=== PATIENT | male | born 1955 | race Caucasian/White ===

== ENCOUNTER → 2016-12-31 | Outpatient (CLI) | payer BC ==
[~2016-12-31] MED LIST: CIPR500T3 PO; COLA100C PO; LOSA25TA8 PO; MELO15TA4 PO; PERC5TAB6 PO; TYLE325T5 PO
== END ==
LOC: M WUC 13:45
PROVIDERS: ATTEND Urology
DX: Z85.46 Personal history of malignant neoplasm of prostate (principal)

== ENCOUNTER → 2017-02-10 | Outpatient (CLI) | payer BC ==
[~2017-02-10] MED LIST changes: -COLA100C PO; +COLA100C3 PO
[2017-02-10 12:56] LABS: ALBUMIN 3.7 GM/DL (3.2-5.2); ALBUMIN/GLOBULIN RATIO 1.28 (1.00-1.93); ALKALINE PHOSPHATASE 56 U/L (45-117); ALT/SGPT 18 U/L (12-78); ANION GAP 5 MEQ/L (8-16); AST/SGOT 12 U/L (15-37); BILIRUBIN,TOTAL 0.5 MG/DL (0.2-1.0); BLOOD UREA NITROGEN 22 MG/DL (7-18); CALCIUM LEVEL 8.9 MG/DL (8.8-10.2); CARBON DIOXIDE LEVEL 28 MEQ/L (21-32); CHLORIDE LEVEL 109 MEQ/L (98-107); CHOLESTEROL LEVEL 220 MG/DL (<200); CREATININE FOR GFR 1.23 MG/DL (0.70-1.30); GLOMERULAR FILTRATION RATE > 60.0 (>49); GLUCOSE, FASTING 96 MG/DL (80-110); POTASSIUM SERUM 4.7 MEQ/L (3.5-5.1); SODIUM LEVEL 142 MEQ/L (136-145); TOTAL PROTEIN 6.6 GM/DL (6.4-8.2); TRIGLYCERIDES LEVEL 143 MG/DL (<150)
== END ==
LOC: M WUC 08:58
PROVIDERS: ATTEND Emergency Medicine
DX: I10 Essential (primary) hypertension (principal); E78.2 Mixed hyperlipidemia

== ENCOUNTER → 2017-05-10 | Outpatient (CLI) | payer OTHER, BC ==
[~2017-05-10] MED LIST changes: -COLA100C3 PO; +COLA100C5 PO; +PERC5TAB12 PO; -PERC5TAB6 PO
--- NOTE | 2017-05-11 15:23 | ECGEPIP ---
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 No prior ECG available for comparison at the time of interpretation. Electronically Signed On 05-11-2017 15:22:53 EDT by Mack Cedeño
== END ==
LOC: M EKG 14:27
PROVIDERS: ATTEND Orthopaedic Surgery
DX: Z01.810 Encounter for preprocedural cardiovascular examination (principal); I10 Essential (primary) hypertension

== ENCOUNTER → 2017-07-13 | Outpatient (CLI) | payer BC | LOC: M WUC 15:08 | PROVIDERS: ATTEND Urology | DX: C61 Malignant neoplasm of prostate (principal) ==

== ENCOUNTER → 2017-08-12 | Outpatient (CLI) | payer BC ==
[2017-08-12 17:55] LABS: BASO # 0.1 10^3/uL (0.0-0.2); BASO % 1.3 % (0.0-1.0); EOS # 0.1 10^3/uL (0.0-0.50); EOS % 2.5 % (0.0-3.0); IMMATURE GRANULOCYTE % 0.4 % (0-0); LYMPH # 1.2 10^3/uL (1.5-4.5); LYMPH % 25.4 % (24.0-44.0); MEAN CORPUSCULAR HGB CONC 32.5 g/dl (32.0-36.5); MEAN CORPUSCULAR VOLUME 89.2 fl (80.0-96.0); MONO # 0.4 10^3/uL (0.0-0.8); MONO % 8.8 % (0.0-5.0); NEUTROPHILS # 2.9 10^3/uL (1.8-7.7); NEUTROPHILS % 61.6 % (36.0-66.0); PLATELET COUNT, AUTOMATED 169 10^3/uL (150-450); RED CELL DISTRIBUTION WIDTH 13.2 % (11.5-14.5); WHITE BLOOD COUNT 4.8 10^3/uL (4.0-10.0)
[2017-08-12 18:11] LABS: ALBUMIN 3.8 GM/DL (3.2-5.2); ALBUMIN/GLOBULIN RATIO 1.36 (1.00-1.93); BILIRUBIN,TOTAL 0.6 MG/DL (0.2-1.0); CALCIUM LEVEL 8.9 MG/DL (8.8-10.2); CREATININE FOR GFR 1.37 MG/DL (0.70-1.30); GLOMERULAR FILTRATION RATE 55.9 (>49); POTASSIUM SERUM 4.6 MEQ/L (3.5-5.1); TOTAL PROTEIN 6.6 GM/DL (6.4-8.2)
== END ==
LOC: M WUC 10:27
PROVIDERS: ATTEND Emergency Medicine
DX: E78.2 Mixed hyperlipidemia (principal); I10 Essential (primary) hypertension; R10.11 Right upper quadrant pain

== ENCOUNTER → 2018-01-06 | Outpatient (CLI) | payer BC ==
[2018-01-06 17:50] LABS: PROSTATIC SPECIFIC AG MONITOR 0.02 NG/ML (< 4.0)
== END ==
LOC: M WUC 13:15
DX: C61 Malignant neoplasm of prostate (principal)
CPT/HCPCS: 84153

== ENCOUNTER → 2018-02-24 | Outpatient (CLI) | payer BC ==
[2018-02-24 12:48] LABS: ALBUMIN 3.8 GM/DL (3.2-5.2); ALBUMIN/GLOBULIN RATIO 1.23 (1.00-1.93); ALKALINE PHOSPHATASE 53 U/L (45-117); ALT/SGPT 19 U/L (12-78); ANION GAP 6 MEQ/L (8-16); AST/SGOT 12 U/L (7-37); BILIRUBIN,TOTAL 0.6 MG/DL (0.2-1.0); BLOOD UREA NITROGEN 24 MG/DL (7-18); CALCIUM LEVEL 8.7 MG/DL (8.8-10.2); CARBON DIOXIDE LEVEL 28 MEQ/L (21-32); CHLORIDE LEVEL 112 MEQ/L (98-107); CHOLESTEROL LEVEL 214 MG/DL (<200); CHOLESTEROL RISK RATIO 3.627 (<5); CREATININE FOR GFR 1.24 MG/DL (0.70-1.30); GLOMERULAR FILTRATION RATE > 60.0 (>49); GLUCOSE, FASTING 93 MG/DL (70-100); HDL CHOLESTEROL 59 MG/DL (>40); LDL CHOLESTEROL 132.2 MG/DL (<100); NON-HDL-C 155 MG/DL; POTASSIUM SERUM 4.9 MEQ/L (3.5-5.1); SODIUM LEVEL 146 MEQ/L (136-145); TOTAL PROTEIN 6.9 GM/DL (6.4-8.2); TRIGLYCERIDES LEVEL 114 MG/DL (<150)
== END ==
LOC: M WUC 09:07
DX: I10 Essential (primary) hypertension (principal); E78.2 Mixed hyperlipidemia
CPT/HCPCS: 80053

== ENCOUNTER 2018-06-03 09:24 | Emergency (ER) | payer OTHER, BC ==
[2018-06-03] MEDS: diazePAM 5 MG TAB PO (10:18)
[2018-06-03] MEDS: KETOROLAC 60 MG/2 ML VIAL (J1885) IM (10:19)
== END 2018-06-03 11:22 | disposition home or self-care (01) ==
LOC: M ED 09:24
DX: M51.36 Other intervertebral disc degeneration, lumbar region (principal); M54.5 Low back pain; X50.0XXA Overexertion from strenuous movement or load, initial encounter; Y92.89 Other specified places as the place of occurrence of the external cause; I10 Essential (primary) hypertension; M19.90 Unspecified osteoarthritis, unspecified site; D75.9 Disease of blood and blood-forming organs, unspecified; Z85.46 Personal history of malignant neoplasm of prostate; Z79.899 Other long term (current) drug therapy; Q60.0 Renal agenesis, unilateral
CPT/HCPCS: J1885

== ENCOUNTER → 2018-07-14 | Outpatient (CLI) | payer OTHER, BC ==
[2018-07-14 18:03] LABS: PROSTATIC SPECIFIC AG MONITOR 0.03 NG/ML (< 4.0)
== END ==
LOC: M WUC 13:35
DX: C61 Malignant neoplasm of prostate (principal)

== ENCOUNTER 2018-09-22 10:49 | Emergency (ER) | payer BC, OTHER ==
[2018-09-22] MEDS: KETOROLAC 60 MG/2 ML VIAL (J1885) IM (11:40)
[2018-09-22 12:00] LABS: KETONE, URINE AUTO RFX NEGATIVE (NEGATIVE); LEUKOCYTE ESTERASE UR AUTO RFX NEGATIVE (NEGATIVE); MUCUS, URINE RFX SMALL (NEGATIVE); NITRITE, URINE AUTO RFX NEGATIVE (NEGATIVE); RBC, URINE AUTO RFX 1 /HPF (0-3); SPECIFIC GRAVITY UR AUTO RFX 1.018 (1.002-1.035); SQUAM EPITHELIAL CELL UR AURFX 0 /HPF (0-6); WBC, URINE AUTO RFX 0 /HPF (0-3)
[2018-09-22] MEDS: diazePAM 5 MG TAB PO (12:06)
== END 2018-09-22 12:20 | disposition home or self-care (01) ==
LOC: M ED 10:49
DX: M54.5 Low back pain (principal); I10 Essential (primary) hypertension; Z79.899 Other long term (current) drug therapy; Z87.891 Personal history of nicotine dependence
CPT/HCPCS: J1885

== ENCOUNTER → 2019-02-09 | Outpatient (CLI) | payer BC ==
[~2019-02-09] MED LIST changes: +GLUC1CAP10 PO; +LOSA25TA14 PO; -LOSA25TA8 PO; +MELO15TA28 PO; -MELO15TA4 PO; +MOBI4TAB PO; +PRED20TA PO; +ROBA500T PO; +TELM1TAB37 PO; +VITA1TAB23 PO; +VITA200016 PO; +ZANA4TAB PO
[2019-02-09 19:56] LABS: ALBUMIN 3.9 GM/DL (3.2-5.2); BILIRUBIN,TOTAL 0.5 MG/DL (0.2-1.0); CALCIUM LEVEL 8.8 MG/DL (8.8-10.2); CHOLESTEROL RISK RATIO 3.964 (<5); CREATININE FOR GFR 1.36 MG/DL (0.70-1.30); GLOMERULAR FILTRATION RATE 56.2 (>49); POTASSIUM SERUM 4.6 MEQ/L (3.5-5.1); TOTAL PROTEIN 6.5 GM/DL (6.4-8.2)
== END ==
LOC: M WUC 08:28
PROVIDERS: ATTEND Physician Assistant
DX: I10 Essential (primary) hypertension (principal); E78.2 Mixed hyperlipidemia

== ENCOUNTER → 2019-02-09 | Outpatient (CLI) | payer BC | LOC: M WUC 08:31 | PROVIDERS: ATTEND Urology | DX: C61 Malignant neoplasm of prostate (principal) ==

== ENCOUNTER 2019-04-24 06:19 | Emergency (ER) | payer OTHER, BC ==
[~2019-04-24] VITALS: Ht 180.3 cm; Wt 89.5 kg
[2019-04-24] MEDS ORDERED: ACETAMINOPHEN TAB 650MG DOSE (2X325MG) PO ONE (07:00)
[2019-04-24] MEDS ORDERED: CYCLOBENZAPRINE 10 MG TAB PO ONE (07:00)
--- NOTE | 2019-04-24 07:51 | REP ---
Clinical: Back pain. Injury. Technique: AP, lateral, bilateral oblique and coned-down views of the lumbosacral spine. Findings: Mild/moderate multilevel degenerative changes include endplate sclerosis with marginal spurring and disc space narrowing. Findings most pronounced at L5-L1 and L3-4, L4-5. Alignment and lordosis maintained. No acute fracture / compression injury or subluxation. No spondylolysis. Impression: Mild/moderate multilevel degenerative changes. No acute fracture / compression injury or subluxation. Electronically Signed by Devang Royal MD 04/24/2019 07:43 A
--- NOTE | 2019-04-24 07:52 | REP ---
Clinical: Pain. Back injury. Technique: AP, lateral, swimmers views of the thoracic spine. Findings: Moderate multilevel degenerative changes include endplate sclerosis with minimal disc space narrowing and marginal spurring/osteophyte formation. Alignment and kyphosis maintained. No acute fracture / compression injury or subluxation. Impression: Moderate multilevel degenerative changes. No acute fracture / compression injury or subluxation. Electronically Signed by Devang Royal MD 04/24/2019 07:44 A
[2019-04-24] MEDS ORDERED: oxyCODONE 5MG TAB PO ONE (08:00)
[2019-04-24] MEDS ORDERED: CYCL10TA PO (08:46)
[2019-04-24 10:08] VITALS: BP 170/90
[2019-04-25] MEDS ORDERED: PRED20TA PO (09:43)
[2019-04-25] MEDS ORDERED: PERC5TAB12 PO (09:43)
== END 2019-04-24 10:09 | disposition home or self-care (01) ==
LOC: M ED 06:19
DX: S39.012A Strain of muscle, fascia and tendon of lower back, initial encounter (principal); M51.37 Other intervertebral disc degeneration, lumbosacral region; X50.0XXA Overexertion from strenuous movement or load, initial encounter; Y92.89 Other specified places as the place of occurrence of the external cause; Y93.89 Activity, other specified; Y99.0 Civilian activity done for income or pay; I10 Essential (primary) hypertension; Z85.46 Personal history of malignant neoplasm of prostate; M25.78 Osteophyte, vertebrae; M51.36 Other intervertebral disc degeneration, lumbar region; Z90.5 Acquired absence of kidney; Z87.891 Personal history of nicotine dependence; Z79.899 Other long term (current) drug therapy

== ENCOUNTER 2019-04-25 08:56 | Emergency (ER) | payer OTHER, BC ==
[~2019-04-25] VITALS: Ht 180.3 cm; Wt 96.8 kg
[~2019-04-25 08:56] MED LIST changes: +CYCL10TA PO
[2019-04-25] MEDS ORDERED: PERCOCET 5MG/325MG TAB PO ONE (09:30)
[2019-04-25] MEDS ORDERED: predniSONE 20 MG TAB PO ONE (09:30)
[2019-04-25] MEDS ORDERED: PRED20TA PO (09:43)
[2019-04-25] MEDS ORDERED: PERC5TAB12 PO (09:43)
[2019-04-25 09:48] VITALS: BP 175/93
[2019-05-31] MEDS ORDERED: CHOL100029 PO (16:10)
[2019-05-31] MEDS ORDERED: DICL1GEL3 TOP (16:10)
[2019-05-31] MEDS ORDERED: GABA-843 PO (16:10)
[2019-09-05] MEDS ORDERED: D200CAP3 PO (15:09)
[2019-09-05] MEDS ORDERED: VITA500T PO (15:09)
[2019-09-16] MEDS ORDERED: GABA-843 PO (13:21)
== END 2019-04-25 09:50 | disposition home or self-care (01) ==
LOC: M ED 08:56
DX: M54.16 Radiculopathy, lumbar region (principal); I10 Essential (primary) hypertension; M51.9 Unspecified thoracic, thoracolumbar and lumbosacral intervertebral disc disorder; Z79.899 Other long term (current) drug therapy

== ENCOUNTER 2019-06-06 07:13 | Day surgery (SDC) | payer BC, MEDICARE ==
[~2019-06-06] VITALS: Ht 177.8 cm; Wt 102.5 kg
[~2019-06-06 07:13] MED LIST changes: +BALANCED SALT IRRIGATION SOLUTION 500ML BAG (FOR OR EYE MACHINE) As Ordered ONE; +CEFUROXIME 1MG/0.1ML INTRACAMERAL INJ As Ordered ONE; +DICL1GEL3 TOP; +DUOVISC (0.50ML VISCOAT/0.55ML PROVISC) OPHTH KIT As Ordered ONE; +GABA-843 PO; +OFLOXACIN 0.3 % (OCUFLOX) OPTH SOL 5ML OS ONE; +PHENYLEPHRINE 2.5% OPHTH SOL 2ML OS ONE; +POVIDONE-IODINE 5% OPHTH PREP SOL 30ML As Ordered ONE; +PROPARACAINE 0.5% OPHTH SOL 15ML OS ONE; +TROPICAMIDE 1% OPHTH SOLN 2ML OS ONE; +VITAD1000T PO
[2019-06-06] MEDS ORDERED: MIDAZOLAM INJ 2 MG/2 ML VIAL (J2250) As Ordered ONE (07:37)
[2019-06-06] MEDS ORDERED: fentaNYL 100 MCG/2 ML INJECTION (J3010) As Ordered ONE (07:37)
[2019-06-06 09:45] VITALS: BP 133/66
--- NOTE | 2019-06-10 11:13 | RO ---
DATE OF PROCEDURE: 06/06/2019 PREOPERATIVE DIAGNOSIS: 1. Visually significant nuclear sclerotic cataract left eye. POSTOPERATIVE DIAGNOSIS: 1. Visually significant nuclear sclerotic cataract left eye. PROCEDURE: 1. Cataract extraction with use of phacoemulsification and placement of intraocular lens, AU00T0 20.5 D, left eye. SURGEON: Min Adame DO CEMETERY MANAGER: None. ANESTHESIA: Local with monitored anesthesia care (MAC). COMPLICATIONS: None. POSTOPERATIVE CONDITION: Stable. INDICATIONS FOR SURGERY: 1. Blurred vision affecting patients activities of daily living. DESCRIPTION OF PROCEDURE: The patient was seen in the preoperative area and properly identified. The correct operative eye was identified and marked. The patient received topical anesthetic, antibiotics, and topical dilating drops. The patient was then transferred to the operating room. The correct side was re-identified, and a time-out was performed. The eye was prepped and draped in a sterile fashion. The eyelids were isolated with Tegaderm tape, and the lids were held open with an adjustable speculum. A 1.0 mm paracentesis incision was made. Intraocular preservative-free Shugarcaine was then injected into the anterior chamber. Viscoelastic was then injected into the anterior chamber through the paracentesis. Using a 2.4 mm sharp-tipped keratome, the anterior chamber was entered via a temporal clear cornea incision. A continuous curvilinear capsulorrhexis was created with Utrata forceps. Hydrodissection was performed with balanced salt solution (BSS) on a blunt cannula until the nucleus was able to rotate freely. The crystalline lens was phacoemulsified and aspirated. Irrigation/aspiration was used to remove the cortical material. Cohesive viscoelastic was placed into the capsular bag to deepen it. The implant was placed into the capsular bag and allowed to unfold. Placement was confirmed by visualizing the anterior capsulorrhexis. Irrigation/aspiration was used to remove the viscoelastic. The clear corneal incision was hydrated with BSS on a blunt cannula. The lens was well positioned. The incisions were then tested for leaks and found to be negative. The eye was then palpated for appropriate pressure and adjusted accordingly with BSS. The eyelid speculum was then carefully removed. A shield was placed over the eye. The patient tolerated the procedure well and was discharged to the recovery unit in a stable condition. FERNY
== END 2019-06-06 10:00 | disposition home or self-care (01) ==
LOC: M SDC 07:13
PROVIDERS: ATTEND Ophthalmology
DX: H25.12 Age-related nuclear cataract, left eye (principal); I10 Essential (primary) hypertension; Z79.899 Other long term (current) drug therapy; Z85.46 Personal history of malignant neoplasm of prostate; Z87.891 Personal history of nicotine dependence
CPT/HCPCS: 66984; J2250; J3010; V2632

== ENCOUNTER 2019-06-20 07:07 | Day surgery (SDC) | payer MEDICARE ==
[~2019-06-20] VITALS: Ht 180.3 cm; Wt 102.7 kg
[~2019-06-20 07:07] MED LIST changes: +CHOL100029 PO; +OFLOXACIN 0.3 % (OCUFLOX) OPTH SOL 5ML OD ONE; -OFLOXACIN 0.3 % (OCUFLOX) OPTH SOL 5ML OS ONE; +PHENYLEPHRINE 2.5% OPHTH SOL 2ML OD ONE; -PHENYLEPHRINE 2.5% OPHTH SOL 2ML OS ONE; +PROPARACAINE 0.5% OPHTH SOL 15ML OD ONE; -PROPARACAINE 0.5% OPHTH SOL 15ML OS ONE; +TROPICAMIDE 1% OPHTH SOLN 2ML OD ONE; -TROPICAMIDE 1% OPHTH SOLN 2ML OS ONE; -VITAD1000T PO
[2019-06-20] MEDS ORDERED: MIDAZOLAM INJ 2 MG/2 ML VIAL (J2250) As Ordered ONE ×2 (07:17→11:36)
[2019-06-20] MEDS ORDERED: LIDOCAINE 0.75%/EPINEPHRINE 0.025% IN BSS 1ML SYR INTRACAMERAL (OR ONLY) As Ordered ONE (09:11)
[2019-06-20] MEDS ORDERED: fentaNYL 100 MCG/2 ML INJECTION (J3010) As Ordered ONE (11:35)
[2019-06-20 12:25] VITALS: BP 134/81
--- NOTE | 2019-06-24 14:03 | RO ---
DATE OF PROCEDURE: 06/20/2019 PREOPERATIVE DIAGNOSIS: 1. Visually significant nuclear sclerotic cataract right eye. POSTOPERATIVE DIAGNOSIS: 1. Visually significant nuclear sclerotic cataract right eye. PROCEDURE: 1. Cataract extraction with use of phacoemulsification and placement of intraocular lens, AU00T0, 20.5 D, right eye. SURGEON: Min Adame DO OPERATIONS AND MAINTENANCE SPECIALIST: None. ANESTHESIA: Local with monitored anesthesia care (MAC). COMPLICATIONS: None. POSTOPERATIVE CONDITION: Stable. INDICATIONS FOR SURGERY: 1. Blurred vision affecting patients activities of daily living. DESCRIPTION OF PROCEDURE: The patient was seen in the preoperative area and properly identified. The correct operative eye was identified and marked. The patient received topical anesthetic, antibiotics, and topical dilating drops. The patient was then transferred to the operating room. The correct side was re-identified, and a time-out was performed. The eye was prepped and draped in a sterile fashion. The eyelids were isolated with Tegaderm tape, and the lids were held open with an adjustable speculum. A 1.0 mm paracentesis incision was made. Intraocular preservative-free Shugarcaine was then injected into the anterior chamber. Viscoelastic was then injected into the anterior chamber through the paracentesis. Using a 2.4 mm sharp-tipped keratome, the anterior chamber was entered via a temporal clear cornea incision. A continuous curvilinear capsulorrhexis was created with Utrata forceps. Hydrodissection was performed with balanced salt solution (BSS) on a blunt cannula until the nucleus was able to rotate freely. The crystalline lens was phacoemulsified and aspirated. Irrigation/aspiration was used to remove the cortical material. Cohesive viscoelastic was placed into the capsular bag to deepen it. The implant was placed into the capsular bag and allowed to unfold. Placement was confirmed by visualizing the anterior capsulorrhexis. Irrigation/aspiration was used to remove the viscoelastic. The clear corneal incision was hydrated with BSS on a blunt cannula. The lens was well positioned. The incisions were then tested for leaks and found to be negative. The eye was then palpated for appropriate pressure and adjusted accordingly with BSS. The eyelid speculum was then carefully removed. A shield was placed over the eye. The patient tolerated the procedure well and was discharged to the recovery unit in a stable condition.
[2019-09-05] MEDS ORDERED: VITA500T PO (15:09)
[2019-09-05] MEDS ORDERED: D200CAP3 PO (15:09)
[2019-09-16] MEDS ORDERED: GABA-843 PO (13:21)
== END 2019-06-20 12:35 | disposition home or self-care (01) ==
LOC: M SDC 07:07
PROVIDERS: ATTEND Ophthalmology
DX: H25.11 Age-related nuclear cataract, right eye (principal); I10 Essential (primary) hypertension; D64.9 Anemia, unspecified; Z79.899 Other long term (current) drug therapy; N40.0 Benign prostatic hyperplasia without lower urinary tract symptoms
CPT/HCPCS: 66984; J2250; J3010; V2632

== ENCOUNTER → 2019-07-11 | Outpatient (CLI) | payer MEDICARE ==
[~2019-07-11] MED LIST changes: -BALANCED SALT IRRIGATION SOLUTION 500ML BAG (FOR OR EYE MACHINE) As Ordered ONE; -CEFUROXIME 1MG/0.1ML INTRACAMERAL INJ As Ordered ONE; -DUOVISC (0.50ML VISCOAT/0.55ML PROVISC) OPHTH KIT As Ordered ONE; -OFLOXACIN 0.3 % (OCUFLOX) OPTH SOL 5ML OD ONE; -PHENYLEPHRINE 2.5% OPHTH SOL 2ML OD ONE; -POVIDONE-IODINE 5% OPHTH PREP SOL 30ML As Ordered ONE; -PROPARACAINE 0.5% OPHTH SOL 15ML OD ONE; -TROPICAMIDE 1% OPHTH SOLN 2ML OD ONE
--- NOTE | 2019-07-11 14:30 | REP ---
LEFT HAND SERIES: Four views. HISTORY: Pain. FINDINGS: Four views of the left hand show advanced osteoarthritic narrowing, sclerosis, and spur formation in the navicular multangular articulation. Mild osteoarthritis is seen at the 1st carpometacarpal articulation. There are osteoarthritic changes and subcortical cysts at the MCP joints of the index and long finger. There is joint space narrowing at these two articulations as well. There is a small dystrophic calcification at the dorsal aspect of the IP joint of the thumb. No erosive changes are seen. IMPRESSION: Osteoarthritic changes as noted above. Electronically Signed by Conrado Huang MD 07/11/2019 03:20 P
== END ==
LOC: M WUC 12:08
PROVIDERS: ATTEND Physician Assistant
DX: M79.642 Pain in left hand (principal)

== ENCOUNTER 2019-09-11 10:27 | Day surgery (SDC) | payer MEDICARE ==
[~2019-09-11] VITALS: Ht 177.8 cm; Wt 107.9 kg
[~2019-09-11 10:27] MED LIST changes: +D200CAP3 PO; +NS 1,000 ML IV SCH; +VITA500T PO
[2019-09-11] MEDS ORDERED: PROPOFOL 200 MG/20 ML VIAL As Ordered ONE ×2 (11:36→12:40)
[2019-09-11] MEDS ORDERED: LIDOCAINE 2% INJ 100 MG/5 ML SDV (FOR ANES.) As Ordered ONE (11:37)
--- NOTE | 2019-09-11 13:07 | ROOR ---
Patient Name: Devang Uribe Procedure Date: 09/11/2019 12:24 PM Date of : 1955 Age: 64 Room: [facility] Gender: Male Note Status: Finalized Procedure: Colonoscopy Indications: Positive Cologuard test Providers: DO Angelia Wright MD: JAMARCUS Gayle Requesting Provider: Medicines: Propofol per Anesthesia Complications: No immediate complications. Procedure: Pre-Anesthesia Assessment: - Prior to the procedure, a History and Physical was performed, and patient medications and allergies were reviewed. The patient is competent. The risks and benefits of the procedure and the sedation options and risks were discussed with the patient. All questions were answered and informed consent was obtained. Patient identification and proposed procedure were verified by the physician, the nurse, the anesthesiologist and the apartment maintenance technician in the endoscopy suite. Mental Status Examination: alert and oriented. Airway Examination: normal oropharyngeal airway and neck mobility. Respiratory Examination: clear to auscultation. CV Examination: normal. Prophylactic Antibiotics: The patient does not require prophylactic antibiotics. Prior Anticoagulants: The patient has taken no previous anticoagulant or antiplatelet agents. ASA Grade Assessment: III - A patient with severe systemic disease. After reviewing the risks and benefits, the patient was deemed in satisfactory condition to undergo the procedure. The anesthesia plan was to use monitored anesthesia care (MAC). Immediately prior to administration of medications, the patient was re-assessed for adequacy to receive sedatives. The heart rate, respiratory rate, oxygen saturations, blood pressure, adequacy of pulmonary ventilation, and response to care were monitored throughout the procedure. The physical status of the patient was re-assessed after the procedure. The Colonoscope was introduced through the anus and advanced to the cecum, identified by appendiceal orifice and ileocecal valve. The colonoscopy was performed without difficulty. The patient tolerated the procedure well. Findings: Non-bleeding internal hemorrhoids were found during retroflexion. The hemorrhoids were Grade II (internal hemorrhoids that prolapse but reduce spontaneously). A less than 5 mm polyp was found in the ascending colon. The polyp was hyperplastic. The polyp was removed with a jumbo cold forceps. Resection and retrieval were complete. Estimated blood loss was minimal. A polypoid non-obstructing large mass was found in the ascending colon. The mass was partially circumferential (involving one-third of the lumen circumference). The mass measured four cm in length. In addition, its diameter measured three mm. No bleeding was present. Biopsies were taken with a cold forceps for histology. Estimated blood loss was minimal. A polypoid non-obstructing medium-sized mass was found in the ascending colon. The mass was non-circumferential. No bleeding was present. This was biopsied with a hot snare for histology. Estimated blood loss was minimal. The exam was otherwise without abnormality on direct and retroflexion views. Impression: - Non-bleeding internal hemorrhoids. - One less than 5 mm polyp in the ascending colon, removed with a jumbo cold forceps. Resected and retrieved. - Likely malignant tumor in the ascending colon. Biopsied. - Likely malignant tumor in the ascending colon. Biopsied. - The examination was otherwise normal on direct and retroflexion views. Recommendation: - Patient has a contact number available for emergencies. The signs and symptoms of potential delayed complications were discussed with the patient. Return to normal activities tomorrow. Written discharge instructions were provided to the patient. - Return to my office in 1 week. - Await pathology results. Hung Keating DO 09/11/2019 1:06:47 PM Electronically signed by Hung Keating DO Number of Addenda: 0 Note Initiated On: 09/11/2019 12:24 PM Estimated Blood Loss: Estimated blood loss was minimal.
[2019-09-11 13:35] VITALS: BP 142/81
[2019-09-16] MEDS ORDERED: GABA-843 PO (13:21)
== END 2019-09-11 13:56 | disposition home or self-care (01) ==
LOC: M OPP 10:27
PROVIDERS: ATTEND Surgery
DX: Z12.11 Encounter for screening for malignant neoplasm of colon (principal); R19.5 Other fecal abnormalities; K64.1 Second degree hemorrhoids; D12.2 Benign neoplasm of ascending colon; D49.0 Neoplasm of unspecified behavior of digestive system; Z87.891 Personal history of nicotine dependence; Z79.899 Other long term (current) drug therapy

== ENCOUNTER → 2019-09-16 | Outpatient (REF) | payer MEDICARE ==
[~2019-09-16] MED LIST changes: -NS 1,000 ML IV SCH
[2019-09-16 13:57] LABS: BASO # 0.1 10^3/uL (0.0-0.2); EOS # 0.2 10^3/uL (0.0-0.5); HEMOGLOBIN 13.6 g/dl (13.5-17.5); LYMPH # 1.2 10^3/uL (1.5-5.0); MEAN CORPUSCULAR HEMOGLOBIN 28.6 pg (27.0-33.0); MEAN CORPUSCULAR HGB CONC 32.4 g/dl (32.0-36.5); MEAN CORPUSCULAR VOLUME 88.4 fl (80.0-96.0); MONO # 0.5 10^3/uL (0.0-0.8); MONO % 8.9 % (0.0-5.0); NEUTROPHILS # 3.2 10^3/uL (1.5-8.5); NEUTROPHILS % 63.1 % (36.0-66.0); PLATELET COUNT, AUTOMATED 183 10^3/uL (150-450); RED BLOOD COUNT 4.75 10^6/uL (4.30-6.10)
[2019-09-16 14:15] LABS: ALBUMIN 3.8 GM/DL (3.2-5.2); BILIRUBIN,TOTAL 0.4 MG/DL (0.2-1.0); CALCIUM LEVEL 9.5 MG/DL (8.8-10.2); CREATININE FOR GFR 1.38 MG/DL (0.70-1.30); GLOMERULAR FILTRATION RATE 55.1 (>49); POTASSIUM SERUM 4.7 MEQ/L (3.5-5.1)
== END ==
LOC: M LABDRAW1 13:23
PROVIDERS: ATTEND Family Medicine
DX: D37.4 Neoplasm of uncertain behavior of colon (principal); Z01.818 Encounter for other preprocedural examination

== ENCOUNTER 2019-09-19 08:08 | Inpatient (IN) | payer MEDICARE ==
[~2019-09-19] VITALS: Ht 180.3 cm; Wt 106.1 kg
[~2019-09-19 08:08] MED LIST changes: +LIDOCAINE 1% MDV 20ML VIAL SQ PRN; +LR 1,000 ML IV ONE
[2019-09-19] MEDS ORDERED: ROCURONIUM BROMIDE 50 MG/5 ML VIAL As Ordered ONE ×2 (09:00→11:43)
[2019-09-19] MEDS ORDERED: PROPOFOL 200 MG/20 ML VIAL As Ordered ONE (09:00)
[2019-09-19] MEDS ORDERED: LIDOCAINE 2% INJ 100 MG/5 ML SDV (FOR ANES.) As Ordered ONE (09:00)
[2019-09-19] MEDS ORDERED: MIDAZOLAM INJ 2 MG/2 ML VIAL (J2250) As Ordered ONE (09:00)
[2019-09-19] MEDS ORDERED: ONDANSETRON 4MG/2ML VIAL (J2405) As Ordered ONE (09:00)
[2019-09-19] MEDS ORDERED: dexameTHASONE 4 MG/ML 1ML VIAL (J1100) As Ordered ONE (09:00)
[2019-09-19] MEDS ORDERED: SUGAMMADEX SODIUM 500 MG/5 ML VIAL (BRIDION) As Ordered ONE (09:00)
[2019-09-19] MEDS ORDERED: METOCLOPRAMIDE INJ 10MG/2ML VIAL (J2765) As Ordered ONE (09:00)
[2019-09-19] MEDS ORDERED: HYDROmorphone HCL 2 MG/ML 1ML VIAL (J1170) As Ordered ONE (09:00)
[2019-09-19] MEDS ORDERED: fentaNYL 250 MCG/5 ML INJECTION (J3010) As Ordered ONE (09:00)
[2019-09-19] MEDS ORDERED: ERTAPENEM 1 GM INJ (INVanz) (J1335) As Ordered ONE (09:41)
[2019-09-19] MEDS ORDERED: BUPIVACAINE/EPIN 0.25% 30 ML VIAL As Ordered ONE (09:43)
[2019-09-19] MEDS ORDERED: ERTAPENEM SODIUM 1 GM in NS MINI-BAG PLUS 50 ML IV ONE (10:00)
[2019-09-19] MEDS ORDERED: PHENYLephrine HCL 500 MCG/5 ML (100MCG/ML) SYRINGE (J2370) As Ordered ONE (11:18)
[2019-09-19] MEDS ORDERED: ACETAMINOPHEN 1000MG 100ML IV BTL (OFIRMEV) (J0131 PER 10MG) As Ordered ONE (11:57)
[2019-09-19] MEDS ORDERED: LABETALOL HCL 100 MG/20 ML VIAL As Ordered ONE (12:06)
[2019-09-19] MEDS: fentaNYL 100 MCG/2 ML INJECTION (J3010) IV PRN ×2 (14:10→14:55)
[2019-09-19] MEDS ORDERED: ACETAMINOPHEN TAB 650MG DOSE (2X325MG) PO PRN (14:15)
[2019-09-19] MEDS ORDERED: ONDANSETRON 4MG/2ML VIAL (J2405) IV PRN ×2 (14:15→14:45)
[2019-09-19] MEDS ORDERED: ePHEDrine SULFATE 25 MG/5 ML(5MG/ML) SYRINGE ONE (14:41)
[2019-09-19] MEDS ORDERED: KETOROLAC 30 MG/ML VIAL (J1885) IV PRN (14:45)
[2019-09-19] MEDS ORDERED: PERCOCET 5MG/325MG TAB PO PRN (14:45)
[2019-09-19] MEDS ORDERED: METOCLOPRAMIDE INJ 10MG/2ML VIAL (J2765) IV PRN (14:45)
[2019-09-19] MEDS ORDERED: LR 1,000 ML IV SCH (14:45)
[2019-09-19 16:09] VITALS: BP 146/92
[2019-09-19] MEDS: KCL 20MEQ IN D5/0.45NS 1000ML 1,000 ML IV SCH (16:39)
[2019-09-19] MEDS: PIPERACILLIN/TAZOBACTAM SOD 3.375 GM in D5W MINI-BAG PLUS 50 ML IV SCH ×2 (16:39→20:15)
[2019-09-19 17:00] VITALS: BP 152/91
[2019-09-19 18:00] VITALS: BP 158/94
[2019-09-19] MEDS: MORPHINE 2 MG/ML 1ML VIAL (J2270) IV PRN ×2 (18:10→23:46)
[2019-09-19 19:00] VITALS: BP 119/86
[2019-09-19 20:00] VITALS: BP 154/87
[2019-09-19 21:00] VITALS: BP 154/88
[2019-09-19] MEDS ORDERED: GABAPENTIN 300 MG CAP PO PRN (21:00)
[2019-09-19] MEDS: KETOROLAC 30 MG/ML VIAL (J1885) IV PRN (21:36)
[2019-09-19] MEDS: PANTOPRAZOLE 40MG INJ (PROTONIX) (C9113) IV SCH (21:36)
[2019-09-20 02:00] VITALS: BP 136/70
[2019-09-20] MEDS: KCL 20MEQ IN D5/0.45NS 1000ML 1,000 ML IV SCH ×3 (02:15→18:19)
[2019-09-20] MEDS: PIPERACILLIN/TAZOBACTAM SOD 3.375 GM in D5W MINI-BAG PLUS 50 ML IV SCH (02:16)
[2019-09-20] MEDS: MORPHINE 2 MG/ML 1ML VIAL (J2270) IV PRN ×2 (05:32→11:21)
[2019-09-20 06:00] VITALS: BP 150/74
[2019-09-20 06:15] LABS: HEMATOCRIT 38.2 % (42.0-52.0); HEMOGLOBIN 12.2 g/dl (13.5-17.5); MEAN CORPUSCULAR HEMOGLOBIN 28.4 pg (27.0-33.0); MEAN CORPUSCULAR HGB CONC 31.9 g/dl (32.0-36.5); PLATELET COUNT, AUTOMATED 174 10^3/uL (150-450); RED BLOOD COUNT 4.29 10^6/uL (4.30-6.10); WHITE BLOOD COUNT 10.5 10^3/uL (4.0-10.0)
[2019-09-20 06:36] LABS: CALCIUM LEVEL 8.7 MG/DL (8.8-10.2); CREATININE FOR GFR 1.62 MG/DL (0.70-1.30); GLOMERULAR FILTRATION RATE 45.8 (>49); POTASSIUM SERUM 4.8 MEQ/L (3.5-5.1)
--- NOTE | 2019-09-20 08:26 | IPNPDOC ---
Text Note Date of Service The patient was seen on 09/20/19. NOTE No acute events overnight. He is tolerating clq diet without any problems. Pain is controlled. He has not been out of bed since surgery. Denies nausea, emesis, or fevers. No flatus. VSSAF NAD abd - soft, nd, TTP appropriate, dressings c/d/i, drain is serosanguinous labs - below A) 64y/o male s/p RA rt hemicolectomy for colon masses. P) d/c blanc ambulate OOB to chair dc abx flq diet amb in clark fluid bolus strict Is and Os Rom Keating DO VS,Fishbone, I+O VS, Fishbone, I+O Laboratory Tests 09/20/19 05:27 Vital Signs Date Time Temp Pulse Resp B/P (MAP) Pulse Ox O2 Delivery O2 Flow Rate FiO2 09/20/19 06:23 20 09/20/19 06:00 97.8 80 150/74 (99) 98 Nasal Cannula 2.0 I&O- Last 24 Hours up to 6 AM 09/20/19 06:00 Intake Total 4450 ml Output Total 200 ml Balance 4250 ml TANA KEATING DO Sep 20, 2019 08:26
[2019-09-20] MEDS ORDERED: NS 500 ML IV ONE (08:30)
[2019-09-20] MEDS: PANTOPRAZOLE 40MG INJ (PROTONIX) (C9113) IV SCH ×2 (08:37→21:09)
[2019-09-20] MEDS: ENOXAPARIN 40 MG/0.4 ML SYRINGE (J1650) SC SCH (08:37)
[2019-09-20] MEDS: KETOROLAC 30 MG/ML VIAL (J1885) IV PRN ×3 (08:55→22:44)
[2019-09-20 10:00] VITALS: BP 114/71
[2019-09-20] MEDS: TELMISARTAN 20 MG TAB PO SCH (12:06)
[2019-09-20 14:00] VITALS: BP 157/75
[2019-09-20 18:00] VITALS: BP 155/74
[2019-09-20 22:00] VITALS: BP 160/86
[2019-09-20] MEDS: DOCUSATE SODIUM 100 MG CAP PO SCH (22:35)
[2019-09-21 02:00] VITALS: BP 136/82
[2019-09-21 06:00] VITALS: BP 150/98
[2019-09-21 06:07] LABS: HEMATOCRIT 39.2 % (42.0-52.0); HEMOGLOBIN 12.8 g/dl (13.5-17.5); MEAN CORPUSCULAR HEMOGLOBIN 28.9 pg (27.0-33.0); MEAN CORPUSCULAR HGB CONC 32.7 g/dl (32.0-36.5); MEAN CORPUSCULAR VOLUME 88.5 fl (80.0-96.0); PLATELET COUNT, AUTOMATED 189 10^3/uL (150-450); RED BLOOD COUNT 4.43 10^6/uL (4.30-6.10); WHITE BLOOD COUNT 8.5 10^3/uL (4.0-10.0)
[2019-09-21 06:29] LABS: CALCIUM LEVEL 9.5 MG/DL (8.8-10.2); CREATININE FOR GFR 1.38 MG/DL (0.70-1.30); GLOMERULAR FILTRATION RATE 55.1 (>49); POTASSIUM SERUM 4.7 MEQ/L (3.5-5.1)
[2019-09-21] MEDS: PANTOPRAZOLE 40MG TAB (PROTONIX) PO SCH ×2 (09:16→21:20)
[2019-09-21] MEDS: DOCUSATE SODIUM 100 MG CAP PO SCH ×2 (09:16→21:20)
[2019-09-21] MEDS: ENOXAPARIN 40 MG/0.4 ML SYRINGE (J1650) SC SCH (09:17)
[2019-09-21] MEDS: TELMISARTAN 20 MG TAB PO SCH (09:17)
[2019-09-21 10:00] VITALS: BP 152/86
[2019-09-21] MEDS ORDERED: NORCO, ANEXSIA 5/325MG TABLET (HYDROcodone/ACETAMINOPHEN) PO PRN (13:45)
[2019-09-21 14:00] VITALS: BP 125/74
[2019-09-21] MEDS: MELOXICAM (MOBIC) 7.5 MG TAB PO SCH (14:35)
--- NOTE | 2019-09-21 14:56 | IPN ---
DATE: 09/21/2019 HISTORY: The patient is now postop day #2 from a laparoscopic right hemicolectomy apparently for two masses in the right colon. Pathology is pending. He appears to be doing fairly well, tolerating some liquids. Vital signs: Show that he has been afebrile with a pulse in the 60s to as high as 107 on one occasion. His blood pressure is good and his room air oxygen saturations are fine. Intake and output show that yesterday he had 2600 in with 3000 out. His urine output has been fairly brisk. He has a drain in the abdomen that put out 250 yesterday and had 210 recorded out this morning. PHYSICAL EXAMINATION: The patient is sitting up in a chair looking fairly comfortable. He is alert and oriented. Heart exam shows a regular rhythm. The lungs are clear. The abdomen is somewhat protuberant. He has bowel sounds present. His dressings are dry. He has a drain in the low midline of the abdomen has some primarily serous fluid in the bulb. The abdomen is soft but he has some mild tenderness as would be expected. Laboratory studies show a white count of 8, hemoglobin of 13, hematocrit of 39 and platelet count of 189,000. Chemistry profile shows normal electrolytes with the exception of a slight elevation of the chloride to 113. BUN is 21, creatinine 1.4 and a glucose 102. IMPRESSION: The patient appears to be doing fairly well. He has been drinking, and I suspect that we have not captured all of his oral intake. He has had a small amount of flatus but no bowel movement and this concerns him. I reassured him that there is not much in there to come out as a bowel movement since his bowel prep before surgery. PLAN: The patient will be advanced to a regular diet. I advised him that he should take what he is comfortable taking and not to force himself. I will have the nurses remove one of his two unused saline locks. I will start some [place] on an as needed basis for pain. I will stop his Toradol so he can resume his meloxicam.
--- NOTE | 2019-09-21 15:24 | RO ---
DATE OF PROCEDURE: 09/19/2019 PREOPERATIVE DIAGNOSIS: Right colon masses. POSTOPERATIVE DIAGNOSIS: Right colon masses. PROCEDURE: Robotic assisted right hemicolectomy. SURGEON: Dr. Keating COLLAR SEPARATOR: Dr. Cruz who assisted with mobilization of the colon, as well as the anastomosis. ANESTHESIA: General. ESTIMATED BLOOD LOSS: 15 mL COMPLICATIONS: None. INDICATIONS FOR PROCEDURE: The patient is a 64-year-old male who presents with a positive Cologuard test and underwent colonoscopy with la last week. He was found to have two very large polyps that were unable to be removed completely endoscopically. Polyps came back as high-grade villous adenomas with high-grade dysplasia. Therefore, due to the size of the polyps, recommendation is to proceed with resection of the right colon. Risks and benefits of the procedure not limited to but including bleeding, infection, hernia formation, damage to surrounding structures, need for further surgery were discussed in detail with the patient, informed consent was obtained, procedure was planned. PROCEDURE: The patient brought back to operating room 7. After sufficient sedation, the abdomen was sterilely prepped and draped. Next, time-out was done to confirm proper patient and proper procedure. Following that, an 8 mm incision made in the left lower quadrant. A Veress needle was inserted and the abdomen was insufflated to 15 mmHg. Next, Veress needle was removed and 8 mm robotic OptiView port was used to gain access to the abdomen. Once the abdomen was entered, three more ports were placed from the left lower quadrant down towards the right lower quadrant. The port just superior to the umbilicus was a 12 mm port. Once the ports were in place, the robot was docked. The right colon was then identified. Starting dissection around the hepatic flexure, the peritoneal reflection was taken down bilaterally along the right side of the colon. Next, the appendix was elevated superiorly and the mesoappendix was dissected free. The omentum was then dissected off the hepatic flexure and through the proximal transverse colon. Once this was all completed and the colon was slightly mobilized, the terminal ileum was identified, elevated, window was created in the mesentery of the terminal ileum and then robotic 45 mm green load stapler was used to transect the terminal ileum. Colon was continued to be elevated superiorly while the mesocolon was dissected free from inferior superior. Vessel sealer was used to go through the vessels. Once the colon was completely mobilized all way up to the proximal transverse colon, the terminal ileum was grabbed on both sides with a grasper and the robot was undocked. The 12 mm port site was extended to about 5 cm. Wound protector was placed, the ends of the colon were brought out through the incision. The two ends of the colon were brought osje-ks-yiti and two small enterotomies were created. The LINDA 75 blue load stapler was then used to create a [id number] anastomosis. Once that was completed, the corner was oversewn with 2-0 silk sutures. The incision line was covered with Tisseel, placed back inside the abdomen, 19-Divehi Jarrell drain was placed next to the anastomosis and brought out through the inferior port site. The fascia was then closed with running #1 PDS. The skin was closed with arpita. The camera was reinserted to examine the abdomen and there were no signs of any other injuries. No signs of any bleeding. The abdomen was then desufflated. The rest of skin incisions were closed with arpita. The drain was sutured in place with 3-0 silk suture. The abdomen was then cleaned and dried, 4x4 and tape were applied, thus ending procedure.
[2019-09-21 18:00] VITALS: BP 115/72
[2019-09-21 22:00] VITALS: BP 148/88
[2019-09-22 06:00] VITALS: BP 145/92
[2019-09-22 06:38] LABS: HEMATOCRIT 38.6 % (42.0-52.0); HEMOGLOBIN 12.6 g/dl (13.5-17.5); MEAN CORPUSCULAR HEMOGLOBIN 28.6 pg (27.0-33.0); MEAN CORPUSCULAR HGB CONC 32.6 g/dl (32.0-36.5); MEAN CORPUSCULAR VOLUME 87.5 fl (80.0-96.0); PLATELET COUNT, AUTOMATED 173 10^3/uL (150-450); RED BLOOD COUNT 4.41 10^6/uL (4.30-6.10); WHITE BLOOD COUNT 7.2 10^3/uL (4.0-10.0)
[2019-09-22 07:00] LABS: CALCIUM LEVEL 9.7 MG/DL (8.8-10.2); CREATININE FOR GFR 1.38 MG/DL (0.70-1.30); GLOMERULAR FILTRATION RATE 55.1 (>49); POTASSIUM SERUM 4.2 MEQ/L (3.5-5.1)
[2019-09-22] MEDS: MELOXICAM (MOBIC) 7.5 MG TAB PO SCH (08:55)
[2019-09-22] MEDS: TELMISARTAN 20 MG TAB PO SCH (08:55)
[2019-09-22] MEDS: ENOXAPARIN 40 MG/0.4 ML SYRINGE (J1650) SC SCH (08:55)
[2019-09-22] MEDS: PANTOPRAZOLE 40MG TAB (PROTONIX) PO SCH (08:55)
[2019-09-22] MEDS: DOCUSATE SODIUM 100 MG CAP PO SCH (08:55)
[2019-09-22] MEDS ORDERED: HYDR-4571 PO (11:16)
--- NOTE | 2019-09-23 07:00 | IPN ---
DATE: 09/22/2019 HISTORY: The patient is now postoperative day #3 from a robotic-assisted laparoscopic right hemicolectomy. His pathology is still pending. He has been advanced to a regular diet and reports that he is tolerating this well. He is voiding without difficulty and has had several small semi-formed bowel movements. He is not having any significant pain. He is ambulating well. VITAL SIGNS: Show that he has been afebrile over the past 24 hours. His pulse is acceptable and his blood pressure is good. Room air oxygen saturation is normal. INTAKE AND OUTPUT: Show that yesterday he had 1250 in with 3800 out. His drain had 220 mL out yesterday and 240 was recorded this morning. PHYSICAL EXAMINATION: The patient ambulates well without apparent discomfort. He is alert and oriented. Heart and lung exams unremarkable. The abdomen is mildly full, but he has active bowel sounds and the abdomen is soft. His incisions are all closed with surgical arpita and these appear to be healing well. He has a drain in the low midline. This has some primarily serous fluid in the bottle with a light pink tinge. LABORATORY STUDIES; Show white count of 7, hemoglobin of 13, hematocrit of 39 and a platelet count of 173,000. Chemistry profile showed normal electrolytes with a BUN of 20, creatinine 1.38 and a glucose of 105. IMPRESSION: The patient is doing well now three days postoperative from his robotic-assisted right hemicolectomy. The patient and I discussed his possible discharge and he believes he is ready to go home. PLAN: The patient will be discharged home today. I removed his drain and applied a nonadherent dressing and instructed him in local wound care. He should continue changing the dressing daily with some topical antibiotic until this is healed. He can shower tomorrow. He can eat a regular diet as tolerated. He was encouraged to be up ambulatory, but was advised against any strenuous physical activity or heavy lifting for the next month. I will send in a prescription for a few Aragon tablets that he can take on an as-needed basis for pain. He was counseled that he should contact the office for any new problems. I will have the office contact him tomorrow to arrange a followup appointment in about a week or so.
--- NOTE | 2019-09-24 09:03 | DSES ---
DATE OF ADMISSION: 09/19/2019 DATE OF DISCHARGE: 09/22/2019 ADMISSION DIAGNOSIS: Right colon masses. DISCHARGE DIAGNOSIS: (dictation cut off). HOSPITAL COURSE: The patient is a 64-year-old male with recent colonoscopy that showed two large high-grade polyps in the right colon, too large to be removed endoscopically. Recommendation was to proceed with surgery. He presented on the for an elective right hemicolectomy. Postoperatively, he did well. On postoperative day #1, he was tolerating liquid diet. No flatus yet. Pain was controlled. He was ambulating around the room and had good urine output. On postoperative day two, he was tolerating a full liquid diet, ambulating and passing flatus. No bowel movements yet. His diet was then advanced to regular. On postoperative day #3, he was doing much better, having bowel movements, pain was controlled and he was ambulating. Plan was for discharge home. He will go home on the . He will follow up me in the office in a week and half to get his arpita removed. He has scripts for pain control. All of his questions were answered and he will follow up in the office.
== END 2019-09-22 13:04 | disposition home or self-care (01) | DRG 331 ==
LOC: M OR 08:08 → M MSPAV 16:09
PROVIDERS: ADMIT Surgery; ATTEND Surgery
PROC: 8E0W4CZ Robotic Assisted Procedure of Trunk Region, Percutaneous Endoscopic Approach (ICD-10-PCS; 2019-09-19)
PROC: 0DTJ4ZZ Resection of Appendix, Percutaneous Endoscopic Approach (ICD-10-PCS; 2019-09-19)
PROC: 0DBF4ZZ Excision of Right Large Intestine, Percutaneous Endoscopic Approach (ICD-10-PCS; principal; 2019-09-19 11:00)
DX: D12.2 Benign neoplasm of ascending colon (principal); Z87.891 Personal history of nicotine dependence; I10 Essential (primary) hypertension; Z85.46 Personal history of malignant neoplasm of prostate; Z85.828 Personal history of other malignant neoplasm of skin; Z98.49 Cataract extraction status, unspecified eye

== ENCOUNTER → 2020-02-25 | Outpatient (CLI) | payer MEDICARE ==
[~2020-02-25] MED LIST changes: +CYCL-707 PO; -CYCL10TA PO; +HYDR-4571 PO; -LIDOCAINE 1% MDV 20ML VIAL SQ PRN; -LR 1,000 ML IV ONE; +VITA-243 PO; -VITA500T PO
== END ==
LOC: M WUC 09:11
PROVIDERS: ATTEND Urology
DX: Z85.46 Personal history of malignant neoplasm of prostate (principal)

== ENCOUNTER → 2020-02-25 | Outpatient (CLI) | payer MEDICARE ==
[2020-02-25 12:12] LABS: TOTAL 25(OH) VITAMIN D 40.2 NG/ML (30.0-100.0)
[2020-02-25 12:17] LABS: ALBUMIN 3.7 GM/DL (3.2-5.2); BILIRUBIN,TOTAL 0.4 MG/DL (0.2-1.0); CALCIUM LEVEL 9.5 MG/DL (8.8-10.2); CHOLESTEROL RISK RATIO 5.622 (<5); CREATININE FOR GFR 1.47 MG/DL (0.70-1.30); GLOMERULAR FILTRATION RATE 51.2 (>49); POTASSIUM SERUM 4.7 MEQ/L (3.5-5.1); THYROID STIMULATING HORMONE 1.46 uIU/ML (0.358-3.740); TOTAL PROTEIN 6.8 GM/DL (6.4-8.2)
== END ==
LOC: M WUC 09:14
PROVIDERS: ATTEND Physician Assistant
DX: E78.2 Mixed hyperlipidemia (principal); R53.83 Other fatigue; E55.9 Vitamin D deficiency, unspecified; Z85.46 Personal history of malignant neoplasm of prostate

== ENCOUNTER → 2020-03-17 | Outpatient (CLI) | payer MEDICARE ==
[2020-03-17 16:08] LABS: ALBUMIN 3.7 GM/DL (3.2-5.2); BILIRUBIN,DIRECT 0.1 MG/DL (0.0-0.2); BILIRUBIN,TOTAL 0.4 MG/DL (0.2-1.0); TOTAL PROTEIN 6.8 GM/DL (6.4-8.2)
== END ==
LOC: M WUC 13:46
PROVIDERS: ATTEND Nurse Practitioner Family
DX: E78.2 Mixed hyperlipidemia (principal)

== ENCOUNTER → 2020-08-18 | Outpatient (CLI) | payer MEDICARE ==
[~2020-08-18] MED LIST changes: +ASCO250T20 PO; -VITA1TAB23 PO
== END ==
LOC: M WUC 10:31
PROVIDERS: ATTEND Urology
DX: Z85.46 Personal history of malignant neoplasm of prostate (principal)

== ENCOUNTER → 2020-11-24 | Outpatient (CLI) | payer MEDICARE ==
[~2020-11-24] MED LIST changes: +GABA-282 PO; -GABA-843 PO
[2020-11-24 14:32] LABS: ALBUMIN 3.8 GM/DL (3.2-5.2); BILIRUBIN,DIRECT 0.1 MG/DL (0.0-0.2); BILIRUBIN,TOTAL 0.6 MG/DL (0.2-1.0); CHOLESTEROL RISK RATIO 5.145 (<5)
== END ==
LOC: M PLALAB 10:32
PROVIDERS: ATTEND Urology
DX: Z85.46 Personal history of malignant neoplasm of prostate (principal); R97.21 Rising PSA following treatment for malignant neoplasm of prostate; E78.2 Mixed hyperlipidemia

== ENCOUNTER → 2021-03-10 | Outpatient (REF) | payer MEDICARE | LOC: M PLALAB 14:51 | PROVIDERS: ATTEND Urology | DX: C61 Malignant neoplasm of prostate (principal) ==

== ENCOUNTER → 2021-05-31 | Outpatient (CLI) | payer MEDICARE | LOC: M PLALAB 13:47 | PROVIDERS: ATTEND Urology | DX: C61 Malignant neoplasm of prostate (principal) ==

== ENCOUNTER → 2021-06-15 | Outpatient (CLI) | payer MEDICARE ==
[2021-06-15 13:56] LABS: ALBUMIN 3.8 GM/DL (3.2-5.2); BILIRUBIN,TOTAL 0.4 MG/DL (0.2-1.0); CALCIUM LEVEL 8.9 MG/DL (8.8-10.2); CHOLESTEROL RISK RATIO 5.533 (<5); CREATININE FOR GFR 1.58 MG/DL (0.70-1.30); GLOMERULAR FILTRATION RATE 46.8 (>49); POTASSIUM SERUM 4.9 MEQ/L (3.5-5.1); TOTAL PROTEIN 6.8 GM/DL (6.4-8.2)
== END ==
LOC: M PLALAB 09:42
PROVIDERS: ATTEND Nurse Practitioner Family
DX: E78.2 Mixed hyperlipidemia (principal); I10 Essential (primary) hypertension

== ENCOUNTER → 2021-11-24 | Outpatient (CLI) | payer MEDICARE ==
[~2021-11-24] MED LIST changes: +LOSA25TA13 PO; -LOSA25TA14 PO
== END ==
LOC: M PLALAB 10:58
PROVIDERS: ATTEND Urology
DX: C61 Malignant neoplasm of prostate (principal)

== ENCOUNTER → 2022-07-19 | Outpatient (CLI) | payer MEDICARE | LOC: M PLALAB 09:43 | PROVIDERS: ATTEND Urology | DX: C61 Malignant neoplasm of prostate (principal) ==

== ENCOUNTER → 2022-07-19 | Outpatient (CLI) | payer MEDICARE ==
[2022-07-19 14:21] LABS: BILIRUBIN,TOTAL 0.4 MG/DL (0.2-1.0); CALCIUM LEVEL 10.6 MG/DL (8.8-10.2); CHOLESTEROL RISK RATIO 4.78 (<5); CREATININE FOR GFR 1.61 MG/DL (0.70-1.30); GLOMERULAR FILTRATION RATE 45.7 (>49); POTASSIUM SERUM 4.3 MEQ/L (3.5-5.1); TOTAL PROTEIN 6.9 GM/DL (6.4-8.2)
== END ==
LOC: M PLALAB 09:45
PROVIDERS: ATTEND Nurse Practitioner Family
DX: E78.2 Mixed hyperlipidemia (principal)

== ENCOUNTER 2022-08-23 11:04 | Emergency (ER) | payer MEDICARE ==
[~2022-08-23] VITALS: Ht 177.8 cm; Wt 100.0 kg
[2022-08-23] MEDS ORDERED: GI COCKTAIL 50ML BTL(HYOSCYAMINE/MAALOX/LIDOCAINE VISCOUS)(1:3:1) PO ONE (11:50)
[2022-08-23] MEDS ORDERED: ONDANSETRON 4MG 2ML VIAL IV ONE ×2 (11:50→13:45)
[2022-08-23] MEDS ORDERED: MORPHINE 2 MG/ML 1ML VIAL IV ONE (11:50)
[2022-08-23] MEDS ORDERED: ASPIRIN 81 MG CHEW TABLET PO ONE (11:50)
[2022-08-23 11:53] LABS: BASO # 0.1 10^3/uL (0.0-0.2); BASO % 0.8 % (0.0-1.0); EOS # 0.2 10^3/uL (0.0-0.5); EOS % 1.7 % (0.0-3.0); HEMATOCRIT 42.6 % (42.0-52.0); HEMOGLOBIN 14.2 g/dl (13.5-17.5); LYMPH # 1.5 10^3/uL (1.5-5.0); LYMPH % 17.2 % (24.0-44.0); MEAN CORPUSCULAR HEMOGLOBIN 28.9 pg (27.0-33.0); MEAN CORPUSCULAR HGB CONC 33.3 g/dl (32.0-36.5); MEAN CORPUSCULAR VOLUME 86.6 fl (80.0-96.0); MONO # 0.6 10^3/uL (0.0-0.8); NEUTROPHILS # 6.4 10^3/uL (1.5-8.5); NEUTROPHILS % 72.8 % (36.0-66.0); PLATELET COUNT, AUTOMATED 195 10^3/uL (150-450); RED BLOOD COUNT 4.92 10^6/uL (4.30-6.10); WHITE BLOOD COUNT 8.8 10^3/uL (4.0-10.0)
[2022-08-23 12:04] LABS: INR 0.91; PROTHROMBIN TIME 12.5 SECONDS (12.5-14.5)
[2022-08-23] MEDS ORDERED: ISOVUE-370 76% 100ML VIAL As Ordered ONE (12:23)
[2022-08-23 12:30] LABS: CK-MB VALUE MASS 39.7 NG/ML (<3.6); MB/CK RELATIVE INDEX 11.41 (< OR =4)
[2022-08-23] MEDS ORDERED: NITROGLYCERIN 0.4 MG SUBL TABLET SL PRN (12:30)
[2022-08-23 12:42] LABS: ALBUMIN 3.8 GM/DL (3.2-5.2); ALT/SGPT 23 U/L (12-78); BILIRUBIN,DIRECT < 0.1 MG/DL (0.0-0.2); BILIRUBIN,TOTAL 0.6 MG/DL (0.2-1.0); BLOOD UREA NITROGEN 21 MG/DL (7-18); CALCIUM LEVEL 10.2 MG/DL (8.8-10.2); CARBON DIOXIDE LEVEL 22 MEQ/L (21-32); CHLORIDE LEVEL 111 MEQ/L (98-107); GLOMERULAR FILTRATION RATE 49.5 (>49); GLUCOSE, FASTING 118 MG/DL (70-100); LIPASE 104 U/L (73-393); POTASSIUM SERUM 4.4 MEQ/L (3.5-5.1); SODIUM LEVEL 143 MEQ/L (136-145)
[2022-08-23] MEDS ORDERED: MORPHINE 2 MG/ML 1ML VIAL IV PRN (12:55)
[2022-08-23 13:06] VITALS: BP 191/104
[2022-08-23] MEDS ORDERED: NS 250 ML IV ONE (13:25)
[2022-08-23] MEDS ORDERED: NS 1,000 ML IV ONE (13:25)
[2022-08-23] MEDS ORDERED: HEPARIN SOD (PORCINE) 5000UNITS/ML 1ML VIAL/SYRINGE IV ONE (13:30)
[2022-08-23] MEDS ORDERED: HEPARIN DRIP 25,000 UNITS in IV 1 EA IV SCH (13:30)
[2022-08-23 13:44] LABS: RSV AMPLIFICATION NEGATIVE (NEGATIVE)
[2022-08-23 13:45] LABS: MB/CK RELATIVE INDEX 11.92 (< OR =4)
[2022-08-23] MEDS ORDERED: NITROGLYCERIN/D5W 100MCG/ML 25 MG in IV 1 EA IV SCH (13:45)
[2022-08-23 13:50] LABS: FREE T4 1.07 NG/DL (0.76-1.46); THYROID STIMULATING HORMONE 1.55 uIU/ML (0.358-3.740)
[2022-08-23 14:06] VITALS: BP 176/98
== END 2022-08-23 14:30 | disposition short-term general hospital (02) ==
LOC: M ED 11:04
DX: I21.4 Non-ST elevation (NSTEMI) myocardial infarction (principal); I10 Essential (primary) hypertension; E78.5 Hyperlipidemia, unspecified; F17.200 Nicotine dependence, unspecified, uncomplicated; Z79.899 Other long term (current) drug therapy
CPT/HCPCS: 71045; 71275; 74177; 80047; 80048; 80076; 82550; 82553; 83690; 83880; 84439; 84443; 84484; 85025; 85610; 85730; 87631; 93005; 93041; 94760; 96361; 96365; 96368; 96375; 96376; 99285; J1644; J2270; J2405; Q9967

== ENCOUNTER 2022-11-17 12:57 | Emergency (ER) | payer MEDICARE ==
[~2022-11-17] VITALS: Ht 177.8 cm; Wt 94.1 kg
[2022-11-17 16:42] LABS: BASO # 0.1 10^3/uL (0.0-0.2); BASO % 0.8 % (0.0-1.0); EOS # 0.2 10^3/uL (0.0-0.5); EOS % 2.5 % (0.0-3.0); HEMOGLOBIN 12.5 g/dl (13.5-17.5); LYMPH # 1.2 10^3/uL (1.5-5.0); LYMPH % 15.2 % (24.0-44.0); MEAN CORPUSCULAR HEMOGLOBIN 28.5 pg (27.0-33.0); MEAN CORPUSCULAR HGB CONC 31.3 g/dl (32.0-36.5); MEAN CORPUSCULAR VOLUME 91.1 fl (80.0-96.0); MONO # 0.6 10^3/uL (0.0-0.8); MONO % 8.1 % (2.0-8.0); NEUTROPHILS # 5.6 10^3/uL (1.5-8.5); PLATELET COUNT, AUTOMATED 203 10^3/uL (150-450); RED BLOOD COUNT 4.39 10^6/uL (4.30-6.10); WHITE BLOOD COUNT 7.7 10^3/uL (4.0-10.0)
[2022-11-17 17:00] LABS: URIC ACID 9.5 MG/DL (3.7-9.2)
[2022-11-17 17:03] LABS: BILIRUBIN,DIRECT 0.3 MG/DL (<0.4); C REACTIVE PROTEIN QUANTITATIV 0.6 MG/DL (<1.0)
[2022-11-17 17:04] LABS: ALBUMIN 4.1 G/DL (3.2-5.2); BILIRUBIN,TOTAL 0.7 MG/DL (0.3-1.2); CALCIUM LEVEL 9.3 MG/DL (8.3-10.6); CREATININE FOR GFR 1.47 MG/DL (0.70-1.30); GLOMERULAR FILTRATION RATE 50.7 (>49); POTASSIUM SERUM 4.6 MMOL/L (3.5-5.1); TOTAL PROTEIN 7.2 G/DL (5.7-8.2)
[2022-11-17 17:07] LABS: ERYTHROCYTE SEDIMENTATION RATE 24 mm/hr (0-20)
[2022-11-17] MEDS ORDERED: PRED20TA PO (17:23)
[2022-11-17 17:53] VITALS: BP 135/76
== END 2022-11-17 18:00 | disposition home or self-care (01) ==
LOC: M ED 16:57
DX: M10.9 Gout, unspecified (principal); M75.22 Bicipital tendinitis, left shoulder; M25.512 Pain in left shoulder; R79.89 Other specified abnormal findings of blood chemistry; K21.9 Gastro-esophageal reflux disease without esophagitis; M54.9 Dorsalgia, unspecified; I25.2 Old myocardial infarction; E78.5 Hyperlipidemia, unspecified; Z90.5 Acquired absence of kidney; Z85.828 Personal history of other malignant neoplasm of skin; Z90.49 Acquired absence of other specified parts of digestive tract; Z90.79 Acquired absence of other genital organ(s); Z87.891 Personal history of nicotine dependence; Z79.899 Other long term (current) drug therapy

== ENCOUNTER → 2023-01-04 | Outpatient (CLI) | payer MEDICARE ==
[2023-01-04 16:37] LABS: CREATININE FOR GFR 1.44 MG/DL (0.70-1.30); GLOMERULAR FILTRATION RATE 51.9 (>49); POTASSIUM SERUM 5.6 MMOL/L (3.5-5.1)
== END ==
LOC: M PLALAB 11:46
PROVIDERS: ATTEND Nurse Practitioner Family
DX: I10 Essential (primary) hypertension (principal)

== ENCOUNTER → 2023-01-04 | Outpatient (CLI) | payer MEDICARE | LOC: M PLALAB 11:49 | PROVIDERS: ATTEND Urology | DX: C61 Malignant neoplasm of prostate (principal) ==

== ENCOUNTER → 2023-07-12 | Outpatient (CLI) | payer MEDICARE ==
[~2023-07-12] MED LIST changes: +DICL100G10 TOP; -DICL1GEL3 TOP
[2023-07-12 15:50] LABS: BILIRUBIN,TOTAL 0.6 MG/DL (0.3-1.2); CALCIUM LEVEL 9.3 MG/DL (8.3-10.6); CREATININE FOR GFR 1.67 MG/DL (0.70-1.30); GLOMERULAR FILTRATION RATE 43.6 (>49); HDL CHOLESTEROL 57.3 MG/DL (>40); LDL CHOLESTEROL 46.3 MG/DL (<100); NON-HDL-C 57.7 MG/DL; POTASSIUM SERUM 4.7 MMOL/L (3.5-5.1); TOTAL PROTEIN 6.6 G/DL (5.7-8.2)
== END ==
LOC: M PLALAB 10:12
PROVIDERS: ATTEND Nurse Practitioner Family
DX: E78.2 Mixed hyperlipidemia (principal); I10 Essential (primary) hypertension

== ENCOUNTER → 2023-07-12 | Outpatient (CLI) | payer MEDICARE | LOC: M PLALAB 10:16 | PROVIDERS: ATTEND Urology | DX: C61 Malignant neoplasm of prostate (principal) ==

== ENCOUNTER → 2024-03-12 | Outpatient (CLI) | payer MEDICARE ==
[2024-03-12 16:12] LABS: BASO # 0.1 10^3/uL (0.0-0.2); BASO % 1.4 % (0.0-1.0); EOS # 0.2 10^3/uL (0.0-0.5); EOS % 3.4 % (0.0-3.0); HEMATOCRIT 42.8 % (42.0-52.0); HEMOGLOBIN 13.5 g/dl (13.5-17.5); LYMPH # 1.4 10^3/uL (1.5-5.0); LYMPH % 22.2 % (24.0-44.0); MEAN CORPUSCULAR HEMOGLOBIN 28.7 pg (27.0-33.0); MEAN CORPUSCULAR HGB CONC 31.5 g/dl (32.0-36.5); MEAN CORPUSCULAR VOLUME 90.9 fl (80.0-96.0); MONO # 0.5 10^3/uL (0.0-0.8); MONO % 7.7 % (2.0-8.0); NEUTROPHILS # 4.2 10^3/uL (1.5-8.5); PLATELET COUNT, AUTOMATED 206 10^3/uL (150-450); RED BLOOD COUNT 4.71 10^6/uL (4.30-6.10); WHITE BLOOD COUNT 6.5 10^3/uL (4.0-10.0)
[2024-03-12 16:13] LABS: ALBUMIN 4.1 G/DL (3.2-5.2); BILIRUBIN,TOTAL 0.7 MG/DL (0.3-1.2); CALCIUM LEVEL 9.5 MG/DL (8.3-10.6); CREATININE FOR GFR 1.55 MG/DL (0.70-1.30); GLOMERULAR FILTRATION RATE 47.6 (>49); POTASSIUM SERUM 4.7 MMOL/L (3.5-5.1); TOTAL PROTEIN 6.8 G/DL (5.7-8.2)
== END ==
LOC: M PLALAB 12:29
PROVIDERS: ATTEND Nurse Practitioner Family
DX: I10 Essential (primary) hypertension (principal)

== ENCOUNTER → 2024-07-19 | Outpatient (CLI) | payer MEDICARE | LOC: M PLALAB 11:45 | PROVIDERS: ATTEND Urology | DX: C61 Malignant neoplasm of prostate (principal) ==

== ENCOUNTER → 2024-08-22 | Outpatient (CLI) | payer MEDICARE ==
[~2024-08-22] MED LIST changes: +GABA-1172 PO; -GABA-282 PO
[2024-08-22 15:38] LABS: ALKALINE PHOSPHATASE 77 U/L (46-116); ALT/SGPT 10 U/L (7.0-40); AST/SGOT < 8 U/L (<34); BILIRUBIN,TOTAL 0.7 MG/DL (0.3-1.2); BLOOD UREA NITROGEN 29 MG/DL (9-23); CALCIUM LEVEL 10.1 MG/DL (8.3-10.6); CARBON DIOXIDE LEVEL 27 MMOL/L (20-31); CHLORIDE LEVEL 109 MMOL/L (98-107); CHOLESTEROL LEVEL 142 MG/DL (<200); CHOLESTEROL RISK RATIO 2.81 (<5); GLOMERULAR FILTRATION RATE 42.6 (>42); GLUCOSE, FASTING 94 MG/DL (74-106); HDL CHOLESTEROL 50.4 MG/DL (>40); LDL CHOLESTEROL 64.6 MG/DL (<100); NON-HDL-C 91.6 MG/DL; SODIUM LEVEL 143 MMOL/L (136-145); TOTAL PROTEIN 6.7 G/DL (5.7-8.2); TRIGLYCERIDES LEVEL 135 MG/DL (<150)
== END ==
LOC: M PLALAB 12:38
PROVIDERS: ATTEND Nurse Practitioner Family
DX: I10 Essential (primary) hypertension (principal); E78.2 Mixed hyperlipidemia

== ENCOUNTER → 2025-01-23 | Outpatient (CLI) | payer MEDICARE | LOC: M PLALAB 11:16 | PROVIDERS: ATTEND Urology | DX: C61 Malignant neoplasm of prostate (principal) ==

== ENCOUNTER → 2025-07-08 | Outpatient (CLI) | payer MEDICARE ==
[~2025-07-08] MED LIST changes: +PRED10TA2 PO
== END ==
LOC: M SOG 06:51
PROVIDERS: ATTEND Orthopaedic Surgery
DX: M25.562 Pain in left knee (principal); M25.561 Pain in right knee; M17.0 Bilateral primary osteoarthritis of knee; M11.261 Other chondrocalcinosis, right knee; M11.262 Other chondrocalcinosis, left knee

== ENCOUNTER → 2025-07-23 | Outpatient (CLI) | payer MEDICARE | LOC: M PLALAB 10:37 | PROVIDERS: ATTEND Urology | DX: C61 Malignant neoplasm of prostate (principal) ==

== ENCOUNTER → 2025-09-02 | Outpatient (CLI) | payer MEDICARE ==
[2025-09-02 13:53] LABS: BASO # 0.1 10^3/uL (0.0-0.2); BASO % 1.3 % (0.0-1.0); EOS # 0.3 10^3/uL (0.0-0.5); EOS % 4.4 % (0.0-3.0); LYMPH # 1.6 10^3/uL (1.5-5.0); LYMPH % 25.4 % (24.0-44.0); MONO # 0.7 10^3/uL (0.0-0.8); MONO % 10.6 % (2.0-8.0); NEUTROPHILS # 3.6 10^3/uL (1.5-8.5); NEUTROPHILS % 57.2 % (36.0-66.0); PLATELET COUNT, AUTOMATED 227 10^3/uL (150-450)
[2025-09-02 13:55] LABS: CALCIUM LEVEL 9.5 MG/DL (8.3-10.6); CARBON DIOXIDE LEVEL 26.0 MMOL/L (20-31); CHLORIDE LEVEL 109.0 MMOL/L (98-107); CREATININE FOR GFR 1.66 MG/DL (0.70-1.30); GLOMERULAR FILTRATION RATE 43.8 (>42); POTASSIUM SERUM 5.0 MMOL/L (3.5-5.1); SODIUM LEVEL 145.0 MMOL/L (136-145)
== END ==
LOC: M PLALAB 11:23
PROVIDERS: ATTEND Nurse Practitioner Family
DX: N18.30 Chronic kidney disease, stage 3 unspecified (principal); Z79.899 Other long term (current) drug therapy